=== PATIENT | female | born 1985 | race Caucasian/White ===

== ENCOUNTER 2018-05-05 10:52 | Inpatient (IN) | payer SELFPAY ==
[2018-05-05] MEDS ORDERED: EPSOM SALT 454 GM TP PRN (11:35)
[2018-05-05] MEDS ORDERED: OXYTOCIN/RINGERS LACTATE 1,000 ML IV PRN (11:35)
[2018-05-05] MEDS ORDERED: IBUPROFEN 600 MG TAB PO PRN ×2 (11:35→15:53)
[2018-05-05] MEDS ORDERED: MISOPROSTOL 200 MCG TAB PR PRN (11:35)
[2018-05-05] MEDS ORDERED: LR 1,000 ML IV PRN (11:35)
[2018-05-05] MEDS ORDERED: OLIVE OIL 118 ML BTL MISC PRN (11:35)
[2018-05-05] MEDS ORDERED: LIDOCAINE 1% 300 MG/30 ML SDV SC PRN (11:35)
[2018-05-05] MEDS ORDERED: OXYTOCIN 10 UNIT/ML VIAL ONE (11:37)
[2018-05-05] MEDS ORDERED: AMMONIA AROMATIC 1 EACH AMP IH ONE (11:37)
[2018-05-05] MEDS ORDERED: TERBUTALINE SULFATE 1 MG/ML VIAL ONE (11:37)
[2018-05-05] MEDS ORDERED: OLIVE OIL 118 ML BTL ONE (11:37)
[2018-05-05] MEDS ORDERED: MISOPROSTOL 200 MCG TAB ONE (11:37)
[2018-05-05] MEDS ORDERED: LIDOCAINE 1% 300 MG/30 ML SDV ONE (11:37)
[2018-05-05 11:47] LABS: PLATELET COUNT 183 10^3/uL (150-400)
--- NOTE | 2018-05-05 13:09 | PDGENHP ---
History and Physical History and Physical: CARE: [facility] HPI: Patient is a 32 yo G 1 P 0 at 38.2 weeks ega who presents to L&D with complaints of regular painful contractions since 0600 this am. She has been leaking a small amt of clear fluid and wonders if her water broke. Baby has been active and she has had some light bloody show. She transferred to [facility] from [facility] at 27 weeks ega because she desired low intervention midwifery care. EDC: 05/09/18 which is based on LMP: 08/02/17 which is known and consistent with Ultrasound at 6 weeks. Her is complicated by: - anemia Review of Systems: Constitutional: Denies any fever, chills, or fatigue HEENT: denies any visual changes, difficulty swallowing, hearing loss Cardiovascular: Denies any chest pain, palpitations, leg swelling Respiratory: denies any cough, wheezing, or shortness of breathe GI: Denies any nausea, vomiting, diarrhea, constipation : denies any dysuria, urgency, frequency, vaginal bleeding Musculoskeletal: denies any muscle or bone pain Skin: denies any rashes Neuro: denies any headache, seizures, lightheadedness, dizziness, or loss of consciousness Psychiatric: denies any depression, anxiety, or SI/HI thoughts HISTORY: Previous OB history: none Past medical history: none Past surgical history: none Social history: denies tobacco, alcohol or recreational drug use. Medications: PNV, flax seed oil, iron Allergies (list reaction): NKDA LABS: Rh: O pos ABS: Neg Rubella: Immune HbsAg: NR HIV: NR VDRL: NR 1hr: 74 GC: Neg Chlamydia: Neg GBS: neg PHYSICAL EXAM: Constitutional: WN, A&Ox3 Skin: Ethan, warm and dry HEENT: normocephalic atraumatic, supple Heart: RRR, no murmur Chest: CTA-B Abdomen: Soft, nontender, gravid SVE: 1-2 cm per RN Extremities: trace edema, negative art's sign Neuro: grossly normal Psych: normal affect assessment: Reassuring FHTs, baseline 120s +accels, no decels, moderate variability Contractions: toco q 3 Assessment: 1) 32 yo G 1 P 0 with IUP@ 38.2 weeks ega 2) latent phase labor - possible SROM 3) GBS neg 4) Cat 1 FHR tracing Plan: 1) Admit to L&D as patient is very uncomfortable with contractions 2) Amnisure 3) Intermittent monitoring per unit policy 4) regular diet as tolerated 5) Pain relief as patient desires 6) Anticipate
--- NOTE | 2018-05-05 15:08 | OBDEL ---
Info Type: Vaginal Presentation at Delivery: Vertex L&D Analgesia/Anesthesia Type: None GBS+: No Indications for Delivery: Spontaneous Labor Vaginal Delivery - Delivery Provider Delivery Physician/CNM: Ermelinda Dowling - Labor and Delivery Onset of Contractions Date: 05/05/18 Onset of Contractions Time: 06:00 Onset of Contractions Type: Spontaneous Rupture of Membranes Date: 05/05/18 Rupture of Membranes Time: 14:05 Rupture of Membranes Type: Spontaneous Amniotic Fluid Color: Clear Dilation Complete Date: 05/05/18 Dilation Complete Time: 14:05 Placenta Delivery Date: 05/05/18 Placenta Delivery Time: 14:23 Total Hours of Labor: 8 Laceration: Other (Specify) (left labial, hemostatic - no repair) Vaginal Sponge Count Correct: Yes Vaginal Needle Count Correct: Yes Vaginal Sweep Performed: Yes EBL: 200 Delivery Events: None Data KENA: 05/09/18 Gestational Age: 39 week(s) and 3 day(s) [place] Delivery Date: 05/05/18 Delivery Time: 14:11 Sex of Infant: Female Score (1 Min): 8 Score (5 Min): 9 ICD10 Worksheet Patient Problems: Problems Problem Status Onset Spontaneous vaginal delivery Acute - ICD10 Problem Qualifiers (1) Spontaneous vaginal delivery
[2018-05-05] MEDS ORDERED: DOCUSATE SODIUM 100 MG CAP PO PRN (15:53)
[2018-05-05] MEDS ORDERED: SIMETHICONE 80 MG TAB CHEW PO PRN (15:53)
[2018-05-05] MEDS ORDERED: ACETAMINOPHEN 325 MG TAB PO PRN (15:53)
[2018-05-05] MEDS ORDERED: HYDROCORTISONE 0.5% CREAM TP PRN (15:53)
[2018-05-05] MEDS ORDERED: HYDROCODONE/APAP 5/325 TAB PO PRN (15:53)
--- NOTE | 2018-05-06 12:08 | OBPP ---
Progress Note Assessment/Plan: Assessment: 32 y/o G1 s/p ppd #1 Plan: routine post care anticipate d/c tomorrow 05/06/18 12:05 Subjective/ Course: 05/06/18 12:06 Feeling good this morning. vag bleeding wnl. voiding, tolerating activity and regular diet. Pain controlled with oral pain meds. with assistance and using nipple diggs. Objective: 05/05/18 11:35 Patient ABO/Rh O POSITIVE 05/05/18 11:35 Temp Pulse Resp BP Pulse Ox 37.1 C 73 14 128/79 H 94 05/06/18 08:00 05/06/18 08:00 05/06/18 08:00 05/06/18 08:00 05/05/18 20:00 Uterine Position/Fundal Height: Umbilicus -1 Uterine Tone: Firm Physical Exam - Physical Exam EENT: PERRL/EOMI Neck: non-tender Respiratory: lungs clear Cardiac/Chest: regular rate, rhythm Abdomen: normal bowel sounds Extremities: normal range of motion Skin: normal color, warm/dry Neuro/Psych: no motor/sensory deficits, alert, normal mood/affect, oriented x 3
--- NOTE | 2018-05-07 10:06 | OBGCSDC ---
General Delivery Information - General Info : 1 Para: 1 Abortions: 0 Type: Vaginal L&D Analgesia/Anesthesia Type: None Admission Date: 05/05/18 Labs: Patient ABO/Rh O POSITIVE 05/05/18 11:35 Hct 37.7 % (38.0-47.0) L 05/05/18 11:35 - Hospital Course : 05/06/18 12:06 Feeling good this morning. vag bleeding wnl. voiding, tolerating activity and regular diet. Pain controlled with oral pain meds. with assistance and using nipple diggs. 05/07/18 09:55 Breast feeding with minimal assistance. Bleeding wnl. Voiding well, tolerating PO and denies pain. Vaginal - Delivery Provider Delivery Physician/CNM: Ermelinda Dowling - Diagnosis Labor: Spontaneous Rupture of Membranes Type: Spontaneous Amniotic Fluid Color: Clear Laceration: Other (Specify) (left labial, hemostatic - no repair) Delivery Events: None - Delivery EBL: 200 [place] Data KENA: 05/09/18 Gestational Age: 39 week(s) and 5 day(s) [place] Delivery Date: 05/05/18 Delivery Time: 14:11 Sex of Infant: Female Weight (gm): 3222 g Score (1 Min): 8 Score (5 Min): 9 Discharge Information - Discharge Information Condition: Good Instruction/Follow Up: Two Weeks, Four Weeks, Six Weeks
[2018-05-07 10:34] VITALS: BP 123/79
== END 2018-05-07 15:40 | disposition home or self-care (01) | DRG 807 ==
LOC: FLD 10:52 → OBSVTOIN 11:36 → FOB 16:27
PROVIDERS: ADMIT Advanced Practice Midwife; ATTEND Advanced Practice Midwife
PROC: 10E0XZZ Delivery of Products of Conception, External Approach (ICD-10-PCS; principal; 2018-05-05)
DX: O99.013 Anemia complicating pregnancy, third trimester (principal); Z3A.39 39 weeks gestation of pregnancy; Z37.0 Single live birth
CPT/HCPCS: J2590; J3105